=== PATIENT | male | born 1990 | race Caucasian/White ===

== ENCOUNTER 2024-03-08 19:49 | Inpatient (IN) | payer OTHER ==
[2024-03-08 20:30] VITALS: BMI 26.4
[2024-03-08] MEDS ORDERED: guaiFENesin 600 MG TABLET.ER (FP) PO PRN (21:16)
[2024-03-08] MEDS ORDERED: NALOXONE (NARCAN) HCL 4 MG/0.1 ML SPRAY NS PRN (21:16)
[2024-03-08] MEDS ORDERED: MAGNESIUM HYDROX 2400MG/30ML ORAL SUSPENSION 30 ML CUP PO PRN (21:16)
[2024-03-08] MEDS ORDERED: LOPERAMIDE HCL 2 MG CAPSULE PO PRN (21:16)
[2024-03-08] MEDS ORDERED: MAG HYDROX/AL HYDROX/SIMETH 30 ML UNIT-DOSE CUP PO PRN (21:16)
[2024-03-08] MEDS ORDERED: BENZONATATE 200 MG CAPSULE PO PRN (21:16)
[2024-03-08] MEDS ORDERED: ACETAMINOPHEN 325 MG TABLET (FP) PO PRN (21:16)
[2024-03-08] MEDS ORDERED: hydrOXYzine PAMOATE 25 MG CAPSULE (FP) PO PRN (21:16)
[2024-03-08] MEDS ORDERED: NICOTINE POLACRILEX 2 MG GUM BUC PRN (21:16)
[2024-03-08] MEDS ORDERED: BENZOCAINE/MENTHOL (CHLORASEPTIC ) LOZENGE MM PRN (21:16)
[2024-03-08] MEDS ORDERED: IBUPROFEN 400 MG TABLET (FP) PO PRN (21:16)
[2024-03-08] MEDS ORDERED: NALOXONE (NYS OPIOID OVERDOSE PROGRAM) 4 MG/0.1 ML SPRAY NS PRN (21:16)
[2024-03-08] MEDS ORDERED: P-EPHED 60MG/TRIPROLIDI 2.5MG TABLET PO PRN (21:16)
[2024-03-08] MEDS ORDERED: NICOTINE POLACRILEX 2 MG LOZENGE BC PRN (21:16)
[2024-03-08] MEDS ORDERED: POLYETHYLENE GLYCOL (HEALTHYLAX) 3350 17 GM PACKET PO PRN (21:16)
[2024-03-08] MEDS ORDERED: IBUPROFEN 600 MG TABLET (FP) PO PRN (21:16)
[2024-03-08] MEDS: THIAMINE 100 MG TABLET PO SCH (22:49)
[2024-03-08] MEDS: SPIRONOLACTONE 25 MG TABLET PO SCH (22:49)
[2024-03-08] MEDS: MELATONIN 5 MG TABLETS PO SCH (22:50)
[2024-03-08] MEDS: ESTRADIOL 2 MG TABLET (NON-FORMULARY) PO SCH (22:50)
[2024-03-08] MEDS: ONDANSETRON *ODT* 4 MG TABLET SL PRN (22:51)
[2024-03-09 00:15] LABS: PH,URINE 6.5 (5.0-8.0); URINE APPEARANCE CLEAR; URINE BILIRUBIN NEGATIVE (NEGATIVE); URINE COLOR YELLOW; URINE GLUCOSE (UA) NEGATIVE (NEGATIVE); URINE KETONE NEGATIVE (NEGATIVE); URINE LEUK ESTERASE NEGATIVE (NEGATIVE); URINE NITRITE NEGATIVE (NEGATIVE); URINE PROTEIN NEGATIVE (NEGATIVE)
[2024-03-09 09:15] VITALS: PULSE 66; RESP 18
[2024-03-09] MEDS: PRENATAL VITAMINS W/ FOLIC ACID TABLET (FP) PO SCH (09:59)
[2024-03-09] MEDS: TRIMETHOBENZAMIDE HCL 200MG/2ML INJ IM ONE (09:59)
[2024-03-09] MEDS: TUBERCULIN PPD 5 TU/0.1ML SYRINGE (IN PATIENT USE ONLY) ID ONE (10:13)
[2024-03-09] MEDS: FINASTERIDE 5 MG TABLET (FP) PO SCH (10:51)
[2024-03-09 11:53] LABS: HEMATOCRIT 40.3 % (35.4-49); HEMOGLOBIN 13.5 GM/dL (11.7-16.9); MCH 31.2 pg (25.7-33.7); MCHC 33.6 g/dl (32.0-35.9); MEAN CELL VOLUME 92.7 fl (80-96); MEAN PLT VOLUME 8.2 fl (7.5-11.1); PLATELET COUNT 315 10^3/uL (134-434); RBC 4.34 M/mm3 (4.00-5.60); RDW 13.3 % (11.9-15.9)
[2024-03-09 12:29] LABS: SYPHILIS W/ RPR CONF NON-REACTIVE (NONREACTIVE)
[2024-03-09 13:02] VITALS: BP 122/86; TEMP 98.2
[2024-03-09 13:02] LABS: CHLORIDE 102 mmol/L (98-107); POTASSIUM 3.9 mmol/L (3.5-5.1); SODIUM 136 mmol/L (136-145)
[2024-03-09 13:09] LABS: ANION GAP 8 mmol/L (4-13); BLOOD UREA NITROGEN 12.7 mg/dL (7-18); CO2 25 mmol/L (21-32); GLUCOSE,RANDOM 93 mg/dL (74-106)
[2024-03-09 13:10] LABS: CALCIUM 9.4 mg/dL (8.5-10.1)
[2024-03-09 13:12] LABS: SGOT/AST 12 U/L (15-37)
[2024-03-09 13:13] LABS: CREATININE 0.8 mg/dL (0.55-1.3)
[2024-03-09 13:14] LABS: TOT PROT 6.9 g/dl (6.4-8.2)
[2024-03-09 13:15] LABS: ALK PHOS 58 U/L (45-117); SGPT/ALT 22 U/L (13-61)
[2024-03-09 13:17] LABS: BILIRUBIN,TOTAL 2.9 mg/dL (0.2-1)
== END 2024-03-09 16:38 | disposition home or self-care (01) | DRG 772 ==
LOC: EDSEX 19:49 → YASAS 19:49 → Y3NR 21:34
PROVIDERS: ADMIT Allergy & Immunology; ATTEND Psychiatry & Neurology Pain Medicine
PROC: HZ42ZZZ Group Counseling for Substance Abuse Treatment, Cognitive-Behavioral (ICD-10-PCS; principal; 2024-03-08)
DX: F10.20 Alcohol dependence, uncomplicated (principal); F12.20 Cannabis dependence, uncomplicated; R11.2 Nausea with vomiting, unspecified; Z72.89 Other problems related to lifestyle
CPT/HCPCS: 36415; 80053; 80305; 80307; 81003; 85027; 86780; 86803; 87811; 93005; 93010; Q0162

== ENCOUNTER 2024-03-09 16:53 | Inpatient (IN) | payer OTHER ==
[2024-03-09] MEDS ORDERED: TRIMETHOBENZAMIDE HCL 200MG/2ML INJ IM PRN (18:04)
[2024-03-09] MEDS ORDERED: MAGNESIUM HYDROX 2400MG/30ML ORAL SUSPENSION 30 ML CUP PO PRN (18:05)
[2024-03-09] MEDS ORDERED: guaiFENesin 600 MG TABLET.ER (FP) PO PRN (18:05)
[2024-03-09] MEDS ORDERED: MAG HYDROX/AL HYDROX/SIMETH 30 ML UNIT-DOSE CUP PO PRN (18:05)
[2024-03-09] MEDS ORDERED: BISMUTH SUBSALICYLATE 524 MG/30 ML PO PRN (18:05)
[2024-03-09] MEDS ORDERED: IBUPROFEN 400 MG TABLET (FP) PO PRN (18:05)
[2024-03-09] MEDS ORDERED: ONDANSETRON *ODT* 4 MG TABLET SL PRN (18:05)
[2024-03-09] MEDS ORDERED: BENZONATATE 200 MG CAPSULE PO PRN (18:05)
[2024-03-09] MEDS ORDERED: IBUPROFEN 600 MG TABLET (FP) PO PRN (18:05)
[2024-03-09] MEDS ORDERED: ACETAMINOPHEN 325 MG TABLET (FP) PO PRN (18:05)
[2024-03-09] MEDS ORDERED: NALOXONE (NARCAN) HCL 4 MG/0.1 ML SPRAY NS PRN (18:05)
[2024-03-09] MEDS ORDERED: METHOCARBAMOL 500 MG TABLET PO PRN (18:05)
[2024-03-09] MEDS ORDERED: BENZOCAINE/MENTHOL (CHLORASEPTIC ) LOZENGE MM PRN (18:05)
[2024-03-09] MEDS ORDERED: POLYETHYLENE GLYCOL (HEALTHYLAX) 3350 17 GM PACKET PO PRN (18:05)
[2024-03-09] MEDS ORDERED: LOPERAMIDE HCL 2 MG CAPSULE PO PRN (18:05)
[2024-03-09] MEDS ORDERED: NALOXONE (NYS OPIOID OVERDOSE PROGRAM) 4 MG/0.1 ML SPRAY NS PRN (18:05)
[2024-03-09] MEDS ORDERED: DICYCLOMINE HCL 10 MG CAPSULE PO PRN (18:05)
[2024-03-09] MEDS: LORazepam 2 MG/ML SDV VIAL IM ONE (18:12)
[2024-03-09] MEDS: ESTRADIOL 2 MG TABLET (NON-FORMULARY) PO SCH (22:06)
[2024-03-09] MEDS: THIAMINE 100 MG TABLET PO SCH (22:08)
[2024-03-09] MEDS: MELATONIN 5 MG TABLETS PO SCH (22:08)
[2024-03-09] MEDS: SPIRONOLACTONE 25 MG TABLET PO SCH (22:12)
[2024-03-09] MEDS: LORazepam 1 MG TABLET PO SCH (22:16)
[2024-03-10] MEDS: PRENATAL VITAMINS W/ FOLIC ACID TABLET (FP) PO SCH (10:24)
[2024-03-10] MEDS: FINASTERIDE 5 MG TABLET (FP) PO SCH (10:25)
[2024-03-11] MEDS: LORazepam 0.5 MG TABLET PO SCH (05:24)
[2024-03-11] MEDS: LORazepam 1 MG TABLET PO SCH (05:40)
[2024-03-11] MEDS: hydrOXYzine PAMOATE 25 MG CAPSULE (FP) PO PRN (17:38)
[2024-03-11] MEDS ORDERED: NICOTINE POLACRILEX 2 MG GUM BUC PRN (17:55)
[2024-03-12] MEDS: LORazepam 0.5 MG TABLET PO ONE (05:53)
[2024-03-12 06:41] VITALS: RESP 17
[2024-03-12 09:45] VITALS: BP 112/78; PULSE 70; TEMP 98
== END 2024-03-12 09:57 | disposition home or self-care (01) | DRG 775 ==
LOC: YASAS 16:53 → Y3N 16:56
PROVIDERS: ADMIT Allergy & Immunology; ATTEND Surgery
PROC: HZ2ZZZZ Detoxification Services for Substance Abuse Treatment (ICD-10-PCS; principal; 2024-03-09)
DX: F10.230 Alcohol dependence with withdrawal, uncomplicated (principal); F12.20 Cannabis dependence, uncomplicated; F64.0 Transsexualism; Z72.89 Other problems related to lifestyle; Z59.01 Sheltered homelessness